=== PATIENT | female | born 1960 | race Caucasian/White ===

== ENCOUNTER → 2016-09-20 | Day surgery (SDC) | payer OTHER ==
[~2016-09-20] VITALS: Ht 162.6 cm; Wt 78.1 kg
[~2016-09-20] MED LIST: ACETAMINOPHEN 1000 MG/100 ML VIAL IV ONE; APREPITANT 40 MG CAP ONE; BUPIVACAINE HCL PF 0.5% 30 ML VIAL ONE; DEXT 5%-NACL 0.45% 1000 ML INJ 1,000 ML IV SCH; ERGO2000 PO; FAMOTIDINE 20 MG/2 ML VIAL ONE; IBUP800T23 PO; INSULIN HUMAN REGULAR 1,000 UNITS/10 ML VIAL SQ PRN; LACTATED RINGER'S 1000 ML IV SCH; LORA-400 PO; METOPROLOL TARTRATE 25 MG TAB PO PRN; MIDAZOLAM HCL 2 MG/2 ML VIAL ONE; ONDANSETRON HCL 4 MG/2 ML VIAL IV PUSH ONE; PROP40TA3 PO; PROPOFOL 200 MG/20 ML AMP IV ONE; SODIUM CHLORID 0.9% 500 ML IV SCH; SODIUM CHLORIDE 0.9% FLUSH 5 ML FLUSH IVF PRN; SODIUM CHLORIDE 0.9% FLUSH 5 ML FLUSH IVF SCH; ZOFR4TAB PO; ceFAZolin 2 GM PREMIX 50 ML IV SCH; ceFAZolin 2 GM PREMIX 50 ML ONE
[2016-09-20 06:43] VITALS: BP 123/84; PULSE 62; RESP 18; TEMP 97.9; O2SAT 97
[2016-09-20 06:58] LABS: AUTOMATED NEUTROPHIL # 4.5 TH/MM3 (1.8-7.7); BASOPHIL # 0.1 TH/MM3 (0-0.2); BASOPHIL % 0.9 % (0.0-2.0); EOSINOPHIL # 0.1 TH/MM3 (0-0.4); EOSINOPHIL % 1.4 % (0.0-4.0); HEMATOCRIT 40.8 % (35.0-46.0); HEMO FLAGS DIFF FINAL; LYMPH % 30.5 % (9.0-44.0); LYMPHOCYTE # 2.4 TH/MM3 (1.0-4.8); MEAN CELL VOLUME 89.2 FL (80.0-100.0); MEAN CORPUSCULAR HEMOGLOBIN 30.4 PG (27.0-34.0); NEUT % 57.2 % (16.0-70.0); PLATELET COUNT 234 TH/MM3 (150-450); RED BLOOD COUNT 4.58 MIL/MM3 (4.00-5.30); RED CELL DISTRIBUTION WIDTH 14.3 % (11.6-17.2); WHITE BLOOD COUNT 7.9 TH/MM3 (4.0-11.0)
--- NOTE | 2016-09-20 07:48 | HP.UPD ---
H&P Update Date: Sep 20, 2016 Note The Pre-Admit History and Physical Examination regarding the above named patient was reviewed (including, but not limited to, vital signs, medications, allergies, co-morbid conditions), and upon re-examination it is noted that: Indicated with "X" x - the patient's condition has not significantly changed since the last examination. [] - the patient's condition has changed since the last examination. Changes: Leslie Maurer MD Sep 20, 2016 07:48
--- NOTE | 2016-09-20 09:11 | HHI.PR ---
Immediate Post Op Note Procedure Date: Sep 20, 2016 Pre Op Diagnosis: (1) Carpal tunnel syndrome on both sides Post Op Diagnosis: (1) Carpal tunnel syndrome on both sides Surgeon: Leslie Maurer Inside Barrel Lathe Operator(s): None Procedure: Endoscopic release of the right carpal tunnel. Anesthesia: General Drains: None Tourniquet time (min at mmHg) 18 minutes using Hemaclear. Patient to: PACU Patient Condition: Good Date/Time of Procedure: SEE SURGICAL CARE RECORD Leslie Maurer MD Sep 20, 2016 09:11
[2016-09-20 10:30] VITALS: BP 133/67; PULSE 56; RESP 16; TEMP 97; O2SAT 97
--- NOTE | 2016-09-20 21:31 | MP ---
cc: SERAFIN KIMBLE MD DATE OF SURGERY 09/20/2016 PREOPERATIVE DIAGNOSIS Right carpal tunnel syndrome. POSTOPERATIVE DIAGNOSIS Right carpal tunnel syndrome PROCEDURE Endoscopic release of the right carpal tunnel. ANESTHESIA General SURGEON Dr. Velasquez Kimble INDICATIONS A 56-year-old female with right carpal tunnel syndrome for release. FINDINGS At the completion of the procedure, the transverse carpal ligament had been completely divided. TOURNIQUET TIME 18 minutes using the Hemaclear PROCEDURE IN DETAIL The patient was seen preoperatively where the site and side were identified and marked. The patient was then taken to the operating room, placed in the supine position. Her identity was checked against the arm band and the consent form, site and side confirmed, time-out called. Prior to beginning the procedure, the right upper extremity was prepped with Hibiclens and draped in usual sterile fashion. The area to be incised was outlined with a marking pen as a transverse incision in the distal forearm 1.5 cm proximal to the distal wrist crease. The distal edge of the transverse carpal ligament was identified and marked. The arm was then simultaneously exsanguinated and the tourniquet placed using the Hemaclear. A #15 blade was used to make a transverse incision in the distal forearm down through the skin down to the subcutaneous tissue. Using a spread technique, the forearm fascia was identified and entered. It was then elevated. The synovial elevator was then used to identify the transverse carpal ligament as well as clean the synovium from it. The obturator cannula apparatus was then introduced into the wound and then just distal to the transverse carpal ligament popped through the palmar fascia into the subcutaneous plane where a separate incision was made. The entire apparatus was delivered. The obturator was then removed leaving the cannula in place. The scope was then passed from distal to proximal identifying the transverse carpal ligament. Then under direct vision using the scope, the transverse carpal ligament was divided. Photos were taken. The obturator was then placed back into the cannula and the entire apparatus was removed. A forearm fasciotomy was then carried out for 2 or 3 cm under direct vision. Bupivacaine 0.5% plain was then injected into all operated areas and the wounds were closed with Dermabond. Once the glue had dried in several layers, Steri-Strips were applied. Pressure was applied and the tourniquet was then released after 18 minutes of tourniquet time. After several minutes, there was no evidence of any oozing and a dressing was applied using 4x4s and hand wrap. The patient was then taken from the operating room to the recovery room in satisfactory condition having tolerated the procedure well. Postoperative instructions include keeping the arm elevated, keeping it clean and dry and returning in several days for follow up. The patient will take ibuprofen 100 mg up to three times a day as needed for pain. MD GARO Quinn/ /9:16 AM /9:25 PM
== END | disposition home or self-care (01) ==
LOC: HSDC 05:42
PROVIDERS: ATTEND Specialist
DX: G56.01 Carpal tunnel syndrome, right upper limb (principal)
CPT/HCPCS: 01810; 29848; 85025; J0131; J0690; J2250; J2405; J3010; J7120; J8501